=== PATIENT | female | born 1935 | race Caucasian/White ===

== ENCOUNTER 2017-08-30 01:02 | Inpatient (IN) | payer OTHER, MEDICARE ==
[~2017-08-30] VITALS: Ht 167.6 cm; Wt 102.7 kg
[~2017-08-30 01:02] MED LIST: ADVAIR DISKUS 21 DSK INH; ASPIR 8181 MG PO; AUGMENTIN 875875 MG PO; CITALOPRAM HYDR20 MG PO; CLOTRIMAZOLE TR10 MG PO; COUMADIN 1 MG TA1 MG PO; FLUTICASON0.05 MG/A2 NAS; FUROSEMIDE40 MG PO; KLOR-CON M2020 MEQ PO; Levofloxacin PO; MONTELUKAST SOD10 MG PO; MULTIVITAMIN1 TAB PO; QUINAPRIL PO; SENOKOT S 50 MG1 TAB PO; SIMVASTATIN20 MG PO; VESICARE 5MG5 MG PO; ZITHROMAX250 M2 PO
--- NOTE | 2017-08-30 01:14 | ED DYSPNEA/ASTHMA COMPLAINT ---
History of Present Illness General Chief Complaint: Dyspnea (COPD, CHF, Other) Stated Complaint: SOB Source: patient, EMS Exam Limitations: no limitations Vital Signs & Intake/Output Vital Signs & Intake/Output Vital Signs Date Time Temp Pulse Resp B/P B/P Pulse O2 O2 Flow FiO2 Mean Ox Delivery Rate 08/30 0135 94 08/30 0123 94 Room Air 08/30 0119 99.0 80 18 165/84 94 Room Air Allergies Coded Allergies: MDX - Heparin (Mild, RASH 03/08/13) MDX - Cefaclor (UNKNOWN 07/19/13) MDX - Clindamycin (UNKNOWN 07/19/13) MDX - Erythromycin (UNKNOWN 07/19/13) MDX - Penicillin V (UNKNOWN 07/19/13) Reconcile Medications Aspirin (Ecotrin) 81 MG TABLET.DR 1 TAB PO DAILY HEART HEALTH (Reported) Azithromycin (Zithromax) 250 MG TABLET 1 DP PO AD bronchitis 2 the first day followed by 1 for days 2-5 Citalopram Hydrobromide (Citalopram HBr) 20 MG TABLET 1 TAB PO DAILY DEPRESSION (Reported) Clotrimazole 10 MG STONE 1 LITA PO DAILY PRN THRUSH (Reported) Reason to Stop at ADM: NOT NEEDED Fluticasone Propionate 50 MCG/ACTUATION SPRAY.SUSP 2 SPRAY ULISES QAM ALLERGIES (Reported) FLUTICASONE/SALMETEROL (Advair 250-50 Diskus) 250 MCG-50 MCG/DOSE BLST.W.DEV 1 PUFF INH BID ASTHMA (Reported) Furosemide 40 MG TABLET 1 TAB PO BID DIURETIC (Reported) Reason to Stop at ADM: HYPOTENSION [Levofloxacin] 500 MG TAB 1 TAB PO DAILY Montelukast Sodium 10 MG TABLET 1 TAB PO DAILY ASTHMA (Reported) Multivitamin (Multiple Vitamins) 1 EACH TABLET 1 TAB PO DAILY SUPPLEMENT ( Reported) Potassium Chloride (Klor-Con M20) [address] 1 TAB PO TID SUPPLEMENT ( Reported) Quinapril HCl (Accupril) 10 MG TABLET 1 TAB PO DAILY BP (Reported) Reason to Stop at ADM: HYPOTENSION SENNOSIDES/DOCUSATE SODIUM (Senokot-S Tablet) 50 MG/8.6 MG TAB 1 TAB PO DAILY PRN CONSTIPATION (Reported) Simvastatin (Zocor) 20 MG TAB 1 TAB PO QPM CHOLESTEROL (Reported) Solifenacin Succinate (Vesicare) 5 MG TABLET 1 TAB PO DAILY BLADDER (Reported ) Triage Nurses Notes Reviewed? yes Onset: Gradual Duration: day(s):, waxing and waning Timing: recent history Severity: moderate Activities at Onset: none Prior Episodes/Possible Cause: occasional episodes Associated Symptoms: cough, wheezing HPI: 82 yo woman h/o COPD, HTN, hypercholesterolemia, OA, paroxysmal afib, presents with 1-2 weeks of cough, wheezing, phlegm, getting worse over the past 1-2 days, and became short of breath at rest this evening. She reports being breathless with difficulty speaking in complete sentences this evening. She notes no fever, chills, chest pain, orthopnea, worsening lower extremity swelling. She is otherwise well. Per the medics, 02 sat 88% in the field on room air, corrects to 96% on supplemental 02. Past History Travel History Traveled to [place] past 21 day No Medical History Any Pertinent Medical History? see below for history Cardiovascular: AFIB, hypertension, ELEVATED CHOLESTEROL PALPITATIONS ATRIAL FIB Respiratory: asthma Musculoskeletal: ARTHRITIS History of MRSA: No History of VRE: No History of CDIFF: No Surgical History Surgical History: non-contributory Psychosocial History Who do you live with Daughter Services at Home None What is your primary language Sierra Leonean Family History Family History, If Any: MOTHER FH: heart disease FATHER FH: COPD (chronic obstructive pulmonary disease) FH: prostate cancer Hx Contributory? No Review of Systems Review of Systems Constitutional: Reports: no symptoms. EENTM: Reports: no symptoms. Respiratory: Reports: no symptoms. Cardiovascular: Reports: no symptoms. GI: Reports: no symptoms. Genitourinary: Reports: no symptoms. Musculoskeletal: Reports: no symptoms. Skin: Reports: no symptoms. Neurological/Psychological: Reports: no symptoms. Hematologic/Endocrine: Reports: no symptoms. Immunologic/Allergic: Reports: no symptoms. All Other Systems: Reviewed and Negative Physical Exam Physical Exam General Appearance: well developed/nourished, mild distress Head: atraumatic, normal appearance Eyes: Bilateral: normal appearance. Ears, Nose, Throat: normal pharynx, normal ENT inspection Neck: normal inspection, supple, full range of motion Respiratory: rhonchi, wheezing Cardiovascular: regular rate/rhythm Gastrointestinal: normal bowel sounds, soft, non-tender Extremities: normal inspection, normal capillary refill, normal range of motion, no edema Neurologic/Psych: no motor/sensory deficits, awake, alert, oriented x 3 Skin: intact, normal color, warm/dry Core Measures ACS in differential dx? No CVA/TIA Diagnosis No Sepsis Present: No Sepsis Focused Exam Completed? No Progress Differential Diagnosis: asthma, bronchitis, CHF, COPD (on) Plan of Care: Orders Procedure Date/time Status Add-on Test (ER Only) 08/30 032 Active Add-on Test (ER Only) 08/30 031 Active EKG 08/30 020 Active PARTIAL THROMBOPLASTIN TIME 08/30 014 Complete PROTHROMBIN TIME 08/30 014 Complete TROPONIN LEVEL 08/30 113 Complete LIPASE 08/30 113 Complete HEPATIC FUNCTION PANEL 08/30 113 Complete CBC WITHOUT DIFFERENTIAL 08/30 113 Complete BASIC METABOLIC PANEL 08/30 113 Complete AMYLASE 08/30 113 Complete EKG 08/30 010 Active Laboratory Tests 08/30/17 0330: PT 49.1 *H, INR 4.44 *H, APTT 45 H 08/30/17 0258: Anion Gap 10, Estimated GFR > 60, BUN/Creatinine Ratio 27.1 H, Glucose 127 H, Calcium 8.6, Total Bilirubin 1.1, Direct Bilirubin 0.4, AST 21, ALT 32, Alkaline Phosphatase 112, Troponin I < 0.01, Total Protein 7.1, Albumin 3.7, Amylase 68, Lipase 170 08/30/17 0143: CBC w Diff MAN DIFF ORDERED, RBC 4.02 L, MCV 91.4, MCH 29.7, MCHC 32.5 L, RDW 15.2 H, MPV 9.4, Gran % 84.5 H, Lymphocytes % 5.9 L, Monocytes % 8.7, Eosinophils % 0.9, Basophils % 0, Absolute Granulocytes 9.2 H, Absolute Lymphocytes 0.6 L, Absolute Monocytes 0.9 H, Absolute Eosinophils 0.1, Absolute Basophils 0, Platelet Estimate ADEQUATE, Ovalocytes 1+ Diagnostic Imaging: Viewed by Me: Radiology Read. Discussed w/RAD: Radiology Read. CXR Impression: PATIENT: ANA MARIA ALAMO V PRESENT AGE : 82 PATIENT ACCOUNT NO: [id number] : 33 LOCATION: [facility] ORDERING PHYSICIAN: Ethan Beasley MD SERVICE DATE: 08/30/17 EXAM TYPE: RAD - XRY-PORTABLE CHEST XRAY EXAMINATION: XR PORTABLE CHEST CLINICAL INFORMATION: Dyspnea. COMPARISON: Chest x-ray February 10, 2017 TECHNIQUE: Portable frontal view of the chest was obtained. 1:15 AM FINDINGS: The heart size is enlarged. There are calcifications of aortic arch. There is no acute change of the chest. No pulmonary vascular congestion. No infiltrate or pleural effusion. IMPRESSION: No acute abnormality of chest. DICTATED BY: Joey Singh MD DATE/TIME DICTATED:08/30/17148 SAMPLE WRAPPER:BEVERLY DATE/TIME TRANSCRIBED:08/30/17148 CONFIDENTIAL, DO NOT COPY WITHOUT APPROPRIATE AUTHORIZATION. <Electronically signed in Other Vendor System> SIGNED BY: Joey Singh MD 08/30/17 0152 Initial ED EKG: afib, new from prior admission Repeat EKG: unchanged (afib) Departure Departure Disposition: HOME OR SELF CARE Condition: Stable Clinical Impression Primary Impression: COPD exacerbation Referrals: Bud HARDWICK,Cristo Ramos (PCP/Family) Departure Forms: Customer Survey General Discharge Information Admission Note Spoke With: Anali Richter MD Documentation of Exam: Documentation of any treatments & extenuating circumstances including Concerns Regarding Discharge (functional status, medication knowledge or non-compliance, living conditions, etc.) that warrant an admission rather than observation: Pt with copd exacerbation... hypoxic in the field, feeling better after supportive medications.... pt with paroxysmal afib, rate controlled into 80's, stable for gen med. Critical Care Note Critical Care Note Critical Care Time: non-applicable
--- NOTE | 2017-08-30 01:52 | RADIOLOGY REPORT ---
EXAMINATION: XR PORTABLE CHEST CLINICAL INFORMATION: Dyspnea. COMPARISON: Chest x-ray February 10, 2017 TECHNIQUE: Portable frontal view of the chest was obtained. 1:15 AM FINDINGS: The heart size is enlarged. There are calcifications of aortic arch. There is no acute change of the chest. No pulmonary vascular congestion. No infiltrate or pleural effusion. IMPRESSION: No acute abnormality of chest.
[2017-08-30 02:23] LABS: ABSOLUTE BASOPHIL COUNT 0 /CUMM (0.0-0.2); ABSOLUTE EOSINOPHIL COUNT 0.1 /CUMM (0.0-0.7); ABSOLUTE GRANULOCYTE CT 9.2 /CUMM (1.4-6.5); ABSOLUTE LYMPH COUNT 0.6 /CUMM (1.2-3.4); ABSOLUTE MONOCYTE COUNT 0.9 /CUMM (0.10-0.60); BASOPHIL % 0 % (0.0-2.0); EOSINOPHIL % 0.9 % (0-5); GRANULOCYTE % 84.5 % (42.2-75.2); HEMATOCRIT 36.8 % (37-47); MEAN CORPUSCULAR HGB 29.7 PG (27.0-31.0); MEAN CORPUSCULAR HGB CONC 32.5 G/DL (33.0-37.0); MEAN CORPUSCULAR VOLUME 91.4 FL (81.0-99.0); MEAN PLATELET VOLUME 9.4 FL (7.4-10.4); PLATELET COUNT 135 /CUMM (130-400); RBC DISTRIBUTION WIDTH 15.2 % (11.5-14.5); RED BLOOD CELL CT 4.02 /CUMM (4.20-5.40); WHITE BLOOD CELL COUNT 10.9 /CUMM (4.8-10.8)
[2017-08-30 03:52] LABS: PTT 45 SEC (25-37)
[2017-08-30 04:10] LABS: PT 49.1 SEC (9.4-12.5)
--- NOTE | 2017-08-30 04:32 | History & Physical ---
Mable HARDWICK,[facility] 08/30/17 0431: General Information and HPI MD Statement: I have seen and personally examined ANA MARIA ALAMO V and documented this H&P. The patient is a 82 year old F who presented with a patient stated chief complaint of [Shortness of breath]. Source of Information: patient, family Exam Limitations: dementia History of Present Illness: The patient is an 82-year-old woman with a past medical history of COPD, HTN, A.fib on Coumadin, hypercholesterolemia, OA and depression who presented to the ED with complaints of nonproductive cough of one week's duration. Patient has dementia at baseline and is a poor historian. She lives with her daughter Devorah ALAMO and she noticed the patient had developed a nonproductive cough one week prior to presentation associated with postnasal drip. Cough was associated with noisy or rattling breath sounds and a wheeze. The patient had no relief with the use of her bronchodilator inhalers nor with drinking water with honey. The symptoms worsened over the past week until today when she was in bed and she became so short of breath she could not sleep. EMS was called and the patient was brought to the hospital by ambulance and was noted to be satting 88% in the field before improving to 96% on oxygen supplementation. Of note, patient experienced sharp left-sided back pain while being transferred on to the stretcher in the ambulance. She denies sore throat or fever but does admit to having some chills tonight. In addition she has been feeling generally weak for the past 2 days. She denies nausea, vomiting or abdominal pain. She has chronic constipation and has been constipated for the last 2 days. She denies dysuria or hematuria. She denies chest pains, palpitations or leg swelling. Allergies/Medications Home Med list Aspirin (Ecotrin*) 81 MG TABLET.DR 1 TAB PO DAILY hear health (Reported) Citalopram Hydrobromide (Citalopram HBr) 40 MG TABLET 1 TAB PO DAILY mental health (Reported) Fluticasone Propionate 50 MCG/ACTUATION SPRAY.SUSP 2 SPRAY NASB DAILY nasal congestion (Reported) Fluticasone/Salmeterol (Advair 250-50 Diskus) 250 MCG-50 MCG/DOSE BLST.W.DEV 1 PUF INH BID copd (Reported) Furosemide 40 MG TABLET 1 TAB PO DAILY fluid retention (Reported) Memantine HCl (Namenda XR) 28 MG CAP.SPR.24 1 CAP PO DAILY dementia (Reported ) Montelukast Sodium (Singulair) 10 MG TABLET 1 TAB PO DAILY copd (Reported) Multiple Vitamin (Multivitamins) 1 EACH TABLET 1 TAB PO DAILY supplement ( Reported) Potassium Chloride 8 MEQ TABLET.ER 1 TAB PO DAILY supplement (Reported) Quinapril HCl (Accupril) 40 MG TABLET 1 TAB PO DAILY blood pressure (Reported ) Simvastatin (Simvastatin*) 20 MG TABLET 1 TAB PO QPM cholesterol (Reported) Solifenacin Succinate (Vesicare) 5 MG TABLET 1 TAB PO DAILY bladder (Reported ) Past History Travel History Traveled to [place] past 21 day No Medical History Neurological: dementia EENT: macular degeneration Cardiovascular: AFIB, hypertension, ELEVATED CHOLESTEROL PALPITATIONS ATRIAL FIB Respiratory: asthma Musculoskeletal: ARTHRITIS History of MRSA: No History of VRE: No History of CDIFF: No Surgical History Surgical History: non-contributory Past Family/Social History Family History Relations & Conditions if any MOTHER FH: heart disease FATHER FH: COPD (chronic obstructive pulmonary disease) FH: prostate cancer Psychosocial History Services at Home: None Smoking Status: Never Smoked ETOH Use: denies use Functional Ability ADLs Independent: eating, toileting. Needs Assist: dressing, bathing. Ambulation: walker IADLs Needs Assist: shopping, housework, finances, food prep, telephone, transportation, medication admin. Review of Systems Review of Systems Constitutional: Reports: see HPI, chills, weakness. Denies: fever. Exam & Diagnostic Data Last 24 Hrs of Vital Signs/I&O Vital Signs Date Time Temp Pulse Resp B/P B/P Pulse O2 O2 Flow FiO2 Mean Ox Delivery Rate 08/30 0605 100.7 08/30 0605 100.7 08/30 0600 Nasal 2.0L Cannula 08/30 0458 99.5 83 18 143/80 96 Nasal 2.0L Cannula 08/30 0135 94 08/30 0123 94 Room Air 08/30 0119 99.0 80 18 165/84 94 Room Air Intake & Output 08/30 0800 08/30 0000 08/29 1600 Intake Total Output Total Balance Patient 249 lb Weight Weight Bed scale Measurement Method Physical Exam General Appearance Alert, Oriented X3, Cooperative, No Acute Distress Skin No Rashes Skin Temp/Moisture Exam: Warm/Dry Sepsis Skin Exam (color): Normal for Ethnicity HEENT Atraumatic, PERRLA, EOMI, Mucous Membr. moist/pink Neck Supple, No JVD, No thryomegaly Lymphatic Cervical nl Cardiovascular Normal S1, Normal S2, No Murmurs, Gallops, irregularly irregular rate Lungs bilateral scattered wheeze and coarse crepitations in the lung bases Abdomen Soft, No Tenderness, No Hepatospenomegaly, ventral hernia presents with bowel loops palpated. Neurological Normal Speech, Strength at 5/5 X4 Ext, Normal Tone Extremities mild +1 pitting pedal edema bilaterally Last 24 Hrs of Labs/[place]: Laboratory Tests 08/30/17 0330: PT 49.1 *H, INR 4.44 *H, APTT 45 H 08/30/17 0258: Anion Gap 10, Estimated GFR > 60, BUN/Creatinine Ratio 27.1 H, Glucose 127 H, Calcium 8.6, Total Bilirubin 1.1, Direct Bilirubin 0.4, AST 21, ALT 32, Alkaline Phosphatase 112, Troponin I < 0.01, Total Protein 7.1, Albumin 3.7, Amylase 68, Lipase 170 08/30/17 0143: CBC w Diff MAN DIFF ORDERED, RBC 4.02 L, MCV 91.4, MCH 29.7, MCHC 32.5 L, RDW 15.2 H, MPV 9.4, Gran % 84.5 H, Lymphocytes % 5.9 L, Monocytes % 8.7, Eosinophils % 0.9, Basophils % 0, Absolute Granulocytes 9.2 H, Absolute Lymphocytes 0.6 L, Absolute Monocytes 0.9 H, Absolute Eosinophils 0.1, Absolute Basophils 0, Platelet Estimate ADEQUATE, Ovalocytes 1+ Microbiology 08/31 555 URINE ROUT: Urine Culture - ORD 08/31 555 BLOOD: Blood Culture - ORD 08/31 555 BLOOD: Blood Culture - ORD 08/30 0501 NASOPHARYN: Influenza Virus A & B Rapid Smear - COMP Diagnostic Data EKG Results Atrial fibrillation. Heart rate 87 beats per minutes. QTC is 491 ms, nonspecific ST changes CXR Results No pulmonary vascular congestion. No infiltrate or pleural effusion. Impression No acute abnormality of chest. Assessment/Plan Assessment: The patient is an 82-year-old woman with a past medical history of COPD, HTN, A.fib on Coumadin, hypercholesterolemia, OA and depression who presented to the ED with complaints of nonproductive cough, wheezing and postnasal drip of one week's duration along with worsening shortness of breath for the past 2 days. Her symptoms are consistent with acute bronchitis probably triggered by an upper respiratory infection. Her chest has bilateral scattered wheeze and some coarse crepitations but her chest x-ray does not show any lesions suggestive of pneumonia. Influenza could be a possibility and even though he tested negative in the ER, I would like to repeat this test as she has a low-grade fever. She' ll be admitted and pancultured. Will start nebulizer therapy and IV Solu Medrol for bronchitis. Her INR is supratherapeutic and Coumadin will be held until INR drifts down to therapeutic range. Problem list 1. Acute bronchitis with hypoxemic respiratory failure and COPD exacerbation * Admit to general medicine * Continue oxygen by nasal cannula to keep SPO2 greater than 92% * Patient received IV Solu-Medrol 125 mg in the ER early this morning * We'll continue IV Solu Medrol 40 every 12 hours from tonight * Repeat flu swab test please * Blood culture 2, urine culture, sputum culture * Patient is allergic to clindamycin and erythromycin but has received azithromycin in the past. However on account of her prolonged QTC of 491 ms will hold THIS medication * Continue by mouth doxycycline 100 mg twice a day 5 days * By mouth Mucinex 600 mg twice a day * Monitor vital signs for fever * Continue medications for COPD Singulair, Symbicort 2. Supratherapeutic INR * Hold Coumadin for now until INR drifts to therapeutic range 3. Atrial fibrillation on Coumadin * Patient is not on any rate control medications at this time * Continue to monitor heart rate 4. Chronic constipation * Aggressive bowel regimen with by mouth MiraLAX, senna S twice a day * If patient develops abdominal distention or pain consider CT abdomen 5. Dementia * Continue Namenda DVT prophylaxis: Coumadinheld for supratherapeutic INR CODE STATUS: Patient is full code As Ranked By This Provider Problem List: 1. SOB (shortness of breath) 2. COPD (chronic obstructive pulmonary disease) 3. HTN (hypertension) Core Measures/Misc (02/23) Acute Coronary Syndrome ACS Diagnosis: No Congestive Heart Failure Congestive Heart Failure Diagnosis No Cerebrovascular Accident CVA/TIA Diagnosis: No VTE (View Protocol) VTE Risk Factors Acute Medical Illness No Mechanical VTE Prophylaxis d/t N/A MechProphylax Ordered No VTE Pharm Prophylaxis d/t NA PharmProphylax ordered Sepsis (View protocol) Sepsis Present: No Parish HARDWICK,Jennyfer 08/30/17 1243: General Information and HPI Allergies/Medications Allergies: Coded Allergies: Penicillins (UNKNOWN 08/30/17) cefaclor (UNKNOWN 08/30/17) clindamycin (UNKNOWN 08/30/17) erythromycin base (UNKNOWN 08/30/17) heparin (RASH 08/30/17) Attending MD Review Statement Attending Statement Attending MD Statement: examined this patient (in), discuss w/resident/PA/TUTOR COORDINATOR, agreed w/resident/PA/TUTOR COORDINATOR, reviewed EMR data (avail), discussed with nursing, discussed with case mgmt, reviewed images, amended to note Attending Assessment/Plan: 82 y/o F with pmh sig for COPD, HTN, A.fib on Coumadin, hypercholesterolemia, OA and depression presented with cough, wheezing, some shortness of breath. Symptoms started about a week ago. Patient herself is not a good historian therefore history of pain from a family. Apparently patient has been having this nonproductive cough from a week and 20 was getting out of breath and had some wheezing and rattling breath sounds. Last night she could not sleep and felt short of breath despite getting her breathing treatments therefore EMS was called and patient was brought into the emergency room. Patient had a low-grade temp but chest x-ray negative for any infiltrate. There was slight leukocytosis. Vital Signs Date Time Temp Pulse Resp B/P B/P Pulse O2 O2 Flow FiO2 Mean Ox Delivery Rate 08/30 1120 Nasal 2.0L Cannula 08/30 1000 76 112/60 08/30 0800 Nasal 2.0L Cannula 08/30 0715 98.4 08/30 0620 100.8 79 18 128/70 98 Nasal Cannula 08/30 0605 100.7 08/30 0605 100.7 08/30 0600 Nasal 2.0L Cannula 08/30 0458 99.5 83 18 143/80 96 Nasal 2.0L Cannula 08/30 0135 94 08/30 0123 94 Room Air 08/30 0119 99.0 80 18 165/84 94 Room Air on exam: awake, NAD. cv; s1,s2, RRR resp; mild scattered wheeze. abd; soft, nt, bs+ ext; no edema, Laboratory Tests 08/30 08/30 08/30 1723 0333 0255 Chemistry Sodium (137 - 145 mmol/L) 141 Potassium (3.5 - 5.1 mmol/L) 3.7 Chloride (98 - 107 mmol/L) 99 Carbon Dioxide (22 - 30 mmol/L) 31 H Anion Gap (5 - 16) 10 BUN (7 - 17 mg/dL) 19 H Creatinine (0.5 - 1.0 mg/dL) 0.7 Estimated GFR (>60 ml/min) > 60 BUN/Creatinine Ratio (7 - 25 %) 27.1 H Glucose (65 - 99 mg/dL) 127 H Calcium (8.4 - 10.2 mg/dL) 8.6 Total Bilirubin (0.2 - 1.3 mg/dL) 1.1 Direct Bilirubin (< 0.4 mg/dL) 0.4 AST (14 - 36 U/L) 21 ALT (9 - 52 U/L) 32 Alkaline Phosphatase (<127 U/L) 112 Troponin I (< 0.11 ng/ml) < 0.01 Total Protein (6.3 - 8.2 g/dL) 7.1 Albumin (3.5 - 5.0 g/dL) 3.7 Amylase (30 - 110 U/L) 68 Lipase (23 - 300 U/L) 170 Coagulation PT (9.4 - 12.5 SEC) 49.1 *H INR (0.90 - 1.19) 4.44 *H APTT (25 - 37 SEC) 45 H Serology Virus Culture Pending 08/30 142 Hematology CBC w Diff MAN DIFF ORDERED WBC (4.8 - 10.8 /CUMM) 10.9 H RBC (4.20 - 5.40 /CUMM) 4.02 L Hgb (12.0 - 16.0 G/DL) 12.0 Hct (37 - 47 %) 36.8 L MCV (81.0 - 99.0 FL) 91.4 MCH (27.0 - 31.0 PG) 29.7 MCHC (33.0 - 37.0 G/DL) 32.5 L RDW (11.5 - 14.5 %) 15.2 H Plt Count (130 - 400 /CUMM) 135 MPV (7.4 - 10.4 FL) 9.4 Gran % (42.2 - 75.2 %) 84.5 H Lymphocytes % (20.5 - 51.1 %) 5.9 L Monocytes % (1.7 - 9.3 %) 8.7 Eosinophils % (0 - 5 %) 0.9 Basophils % (0.0 - 2.0 %) 0 Absolute Granulocytes (1.4 - 6.5 /CUMM) 9.2 H Absolute Lymphocytes (1.2 - 3.4 /CUMM) 0.6 L Absolute Monocytes (0.10 - 0.60 /CUMM) 0.9 H Absolute Eosinophils (0.0 - 0.7 /CUMM) 0.1 Absolute Basophils (0.0 - 0.2 /CUMM) 0 Platelet Estimate (ADEQUATE) ADEQUATE Ovalocytes 1+ CXR: no infiltrate. A/P: 82 y/o F with pmh sig for COPD, HTN, A.fib on Coumadin, hypercholesterolemia, OA and depression admitted with acute bronchitis, acute COPD exacerbation. Patient will be admitted to medicine floor. She received doxycycline in the emergency room which we will continue. We'll obtain sputum culture. IV steroids and TRC nebs. She's also couple of ethics with high INR. Coumadin will be held today INR will be checked in the morning. Continue this at home medications. DVT px: INR super therapeutic. She is a full code.
[2017-08-30] MEDS ORDERED: CITALOPRAM HBR40 MG PO (05:29)
[2017-08-30] MEDS ORDERED: ASPIRIN EC81 M1 PO (05:30)
[2017-08-30] MEDS ORDERED: ACCUPRIL40 M1 PO (05:32)
[2017-08-30] MEDS ORDERED: ADVAIR 250-501 EACH INH (05:33)
[2017-08-30] MEDS ORDERED: FLUTICASONE PRO16 GM NASB (05:34)
[2017-08-30] MEDS ORDERED: POTASSIUM CHLOR8 ME2 PO (05:35)
[2017-08-30] MEDS ORDERED: MULTIVITAMINS1 EAC9 PO (05:36)
[2017-08-30] MEDS ORDERED: FUROSEMIDE40 M1 PO (05:37)
[2017-08-30] MEDS ORDERED: SINGULAIR10 M1 PO (05:38)
[2017-08-30] MEDS ORDERED: SIMVASTATIN20 M2 PO (05:39)
[2017-08-30] MEDS ORDERED: VESICARE5 M1 PO (05:39)
[2017-08-30] MEDS ORDERED: NAMENDA XR28 M1 PO (05:40)
[2017-08-30 06:20] VITALS: BP 128/70
[2017-08-30 14:55] VITALS: BP 110/70
[2017-08-30 22:34] VITALS: BP 128/60
[2017-08-31 06:20] VITALS: BP 140/70
--- NOTE | 2017-08-31 08:04 | PN- Housestaff ---
Trice Salinas 08/31/17 0804: Subjective Follow-up For: Acute bronchitis with hypoxemic respiratory failure and COPD exacerbation Supratherapeutic INR Atrial fibrillation on Coumadin Subjective: Patient reports chest tightness. Denies SOB, CP, nausea, vomiting, cough Review of Systems Constitutional: Reports: see HPI. Objective Last 24 Hrs of Vital Signs/I&O Vital Signs Date Time Temp Pulse Resp B/P B/P Pulse O2 O2 Flow FiO2 Mean Ox Delivery Rate 08/31 0620 98.1 75 18 140/70 94 Room Air 08/31 0000 98 Nasal 2.0L Cannula 08/30 2234 98.5 66 20 128/60 98 Nasal 2.0L Cannula 08/30 1850 96 Nasal 2.0L Cannula 08/30 1600 Nasal 2.0L Cannula 08/30 1455 98.7 67 18 110/70 96 08/30 1120 Nasal 2.0L Cannula 08/30 1000 76 112/60 Intake & Output 08/31 1600 08/31 0800 08/31 0000 Intake Total 360 480 Output Total Balance 360 480 Intake, Oral 360 480 Patient 229 lb Weight Weight Bed scale Measurement Method Physical Exam General Appearance: Alert, Oriented X3, Cooperative, on 2LNC Cardiovascular: Regular Rate, Normal S1, Normal S2 Lungs: Mild diffused wheezing Abdomen: Normal Bowel Sounds, Soft, No Tenderness Current Medications: Current Medications Sig/Jono Start time Last Medication Dose Route Stop Time Status Admin Acetaminophen 650 MG Q6P PRN 08/30 0600 AC PO Albuterol Sulfate 3 ML BID 08/30 1125 AC 08/30 INH 1850 Aspirin Buffered 81 MG DAILY 08/30 1000 AC 08/30 PO 0956 Atorvastatin Calcium 10 MG 1700 08/30 1700 AC 08/30 PO 1612 Budesonide/ 2 PUF BID 08/30 1000 AC 08/30 Formoterol Fumarate INH 2126 Citalopram 40 MG DAILY 08/30 1000 AC 08/30 Hydrobromide PO 0955 Doxycycline Hyclate 100 MG BID 08/30 2200 AC 08/30 PO 2125 Fluticasone 2 SPRAY DAILY 08/30 1000 AC 08/30 Propionate ULISES 1020 Furosemide 40 MG DAILY 08/30 1000 AC 08/30 PO 0958 Guaifenesin 600 MG Q12 08/30 1000 AC 08/30 PO 2125 Lisinopril 10 MG DAILY 08/30 1000 AC 08/30 PO 1000 Memantine 10 MG BID 08/30 1000 AC 08/30 PO 2125 Methylprednisolone 40 MG Q12 08/300 AC 08/30 IV 2125 Montelukast Sodium 10 MG DAILY@0 08/30 2200 AC 08/30 PO 2126 Montelukast Sodium 10 MG DAILY 08/30 1000 DC PO Multivitamins 1 TAB DAILY 08/30 1000 AC 08/30 Therapeutic PO 1002 Polyethylene Glycol 17 GM DAILY 08/30 1000 AC 08/30 PO 1008 Potassium Chloride 10 MEQ DAILY 08/30 1000 AC 08/30 PO 0957 Senna/Docusate Sodium 1 TAB BID 08/30 1000 AC 08/30 PO 2125 Last 24 Hrs of Lab/[place] Results Last 24 Hrs of Labs/Mics: Laboratory Tests 08/31/17 0730: Sodium Pending, Potassium Pending, Chloride Pending, Carbon Dioxide Pending, Anion Gap Pending, BUN Pending, Creatinine Pending, BUN/Creatinine Ratio Pending , PT Pending, INR Pending, CBC w Diff Pending, WBC Pending, RBC Pending, Hgb Pending, Hct Pending, MCV Pending, MCH Pending, MCHC Pending, RDW Pending, Plt Count Pending, MPV Pending Microbiology 08/30 1145 BLOOD: Blood Culture - RECD 08/30 1010 BLOOD: Blood Culture - RECD Assessment/Plan Assessment: Ms. Gallegos is a 82-year-old woman with a past medical history of COPD, HTN, A.fib on Coumadin, hypercholesterolemia, OA and depression who presented to the ED with complaints of nonproductive cough, wheezing and postnasal drip Priblem list: Acute bronchitis with hypoxemic respiratory failure and COPD exacerbation Supratherapeutic INR Atrial fibrillation on Coumadin, not on rate control Plan: TRC/nebs PRN Dose Coumadin per INR, will hold today Continue IV methyprenisolone BID, Doxycycline BID DVT prophylaxis: Coumadinheld for supratherapeutic INR CODE STATUS: full code Problem List: 1. Supratherapeutic INR 2. COPD exacerbation Pain Ratin Pain Location: NA Pain Goal: Remain pain free Pain Plan: NA Tomorrow's Labs & Rationales: CBC, BEP Parish HARDWICK,Jennyfer 08/31/17 1229: Attending MD Review Statement Attending Statement Attending MD Statement: examined this patient, discuss w/resident/PA/FIRST ASSIST, agreed w/resident/PA/FIRST ASSIST, discussed with family, reviewed EMR data (avail), discussed with nursing, reviewed images, amended to note Attending Assessment/Plan: Patient seen and examined, feels slightly better with her breathing. Did mention some chest discomfort with deep breath. Vital Signs Date Time Temp Pulse Resp B/P B/P Pulse O2 O2 Flow FiO2 Mean Ox Delivery Rate 08/31 1055 97 Nasal 2.0L Cannula 08/31 0925 77 110/68 08/31 0620 98.1 75 18 140/70 94 Room Air 08/31 0000 98 Nasal 2.0L Cannula 08/30 2234 98.5 66 20 128/60 98 Nasal 2.0L Cannula 08/30 1850 96 Nasal 2.0L Cannula 08/30 1600 Nasal 2.0L Cannula 08/30 1455 98.7 67 18 110/70 96 on exam: awake, NAD. cv; s1,s2, RRR resp; clear abd; soft, nt, bs+ ext; no edema, Laboratory Tests 08/31 0730 Chemistry Sodium (137 - 145 mmol/L) 140 Potassium (3.5 - 5.1 mmol/L) 3.9 Chloride (98 - 107 mmol/L) 101 Carbon Dioxide (22 - 30 mmol/L) 30 Anion Gap (5 - 16) 9 BUN (7 - 17 mg/dL) 21 H Creatinine (0.5 - 1.0 mg/dL) 0.8 Estimated GFR (>60 ml/min) > 60 BUN/Creatinine Ratio (7 - 25 %) 26.3 H Coagulation PT (9.4 - 12.5 SEC) 47.6 *H INR (0.90 - 1.19) 4.30 *H Hematology CBC w Diff NO MAN DIFF REQ WBC (4.8 - 10.8 /CUMM) 12.6 H RBC (4.20 - 5.40 /CUMM) 3.59 L Hgb (12.0 - 16.0 G/DL) 10.8 L Hct (37 - 47 %) 33.2 L MCV (81.0 - 99.0 FL) 92.6 MCH (27.0 - 31.0 PG) 30.0 MCHC (33.0 - 37.0 G/DL) 32.4 L RDW (11.5 - 14.5 %) 15.1 H Plt Count (/CUMM) MPV (7.4 - 10.4 FL) 9.1 Gran % (42.2 - 75.2 %) 92.5 H Lymphocytes % (20.5 - 51.1 %) 3.4 L Monocytes % (1.7 - 9.3 %) 4.1 Eosinophils % (0 - 5 %) 0 Basophils % (0.0 - 2.0 %) 0 Absolute Granulocytes (1.4 - 6.5 /CUMM) 11.6 H Absolute Lymphocytes (1.2 - 3.4 /CUMM) 0.4 L Absolute Monocytes (0.10 - 0.60 /CUMM) 0.5 Absolute Eosinophils (0.0 - 0.7 /CUMM) 0 Absolute Basophils (0.0 - 0.2 /CUMM) 0 A/P: 82 y/o F with pmh sig for COPD, HTN, A.fib on Coumadin, hypercholesterolemia, OA and depression admitted with acute bronchitis, acute COPD exacerbation. Patient has supratherapeutic INR. Continue IV steroids, agree with decreasing the frequency to every 12. Continue doxycycline. Follow-up on the cultures. Chest discomfort is likely secondary to bronchitis. If patient has constant chest pain or chest pressure, she will need an EKG and troponins. Continue the rest of the medications and TRC nebs. DVT px, INR subtherapeutic. Please hold Coumadin and check INR in the morning. Discussed with patient's daughter at bedside.
[2017-08-31 08:13] LABS: ABSOLUTE BASOPHIL COUNT 0 /CUMM (0.0-0.2); ABSOLUTE EOSINOPHIL COUNT 0 /CUMM (0.0-0.7); ABSOLUTE GRANULOCYTE CT 11.6 /CUMM (1.4-6.5); ABSOLUTE LYMPH COUNT 0.4 /CUMM (1.2-3.4); ABSOLUTE MONOCYTE COUNT 0.5 /CUMM (0.10-0.60); BASOPHIL % 0 % (0.0-2.0); EOSINOPHIL % 0 % (0-5); HEMATOCRIT 33.2 % (37-47); MEAN CORPUSCULAR HGB CONC 32.4 G/DL (33.0-37.0); MEAN CORPUSCULAR VOLUME 92.6 FL (81.0-99.0); MEAN PLATELET VOLUME 9.1 FL (7.4-10.4); RBC DISTRIBUTION WIDTH 15.1 % (11.5-14.5); RED BLOOD CELL CT 3.59 /CUMM (4.20-5.40); WHITE BLOOD CELL COUNT 12.6 /CUMM (4.8-10.8)
[2017-08-31 09:15] LABS: GRANULOCYTE % 92.5 % (42.2-75.2)
[2017-08-31 09:20] LABS: PT 47.6 SEC (9.4-12.5)
[2017-08-31 15:08] VITALS: BP 116/56
[2017-08-31 22:11] VITALS: BP 128/60
[2017-09-01 06:20] VITALS: BP 126/70
--- NOTE | 2017-09-01 07:24 | PN- Housestaff ---
See Addendum Subjective Follow-up For: Acute bronchitis with hypoxemic respiratory failure and COPD exacerbation Supratherapeutic INR Atrial fibrillation on Coumadin Subjective: No complaints or acute events overnight Review of Systems Constitutional: Reports: see HPI. Objective Last 24 Hrs of Vital Signs/I&O Vital Signs Date Time Temp Pulse Resp B/P B/P Pulse O2 O2 Flow FiO2 Mean Ox Delivery Rate 09/01 06 98.4 75 20 126/70 96 Room Air 09/01 0000 Nasal 2.0L Cannula 08/31 2211 98.1 71 20 128/60 95 08/31 1850 98 Room Air 08/31 1600 Room Air Room Air 08/31 1508 98.2 69 20 116/56 95 08/31 1055 97 Nasal 2.0L Cannula 08/31 0925 77 110/68 Intake & Output 09/01 1600 09/01 0800 09/01 0000 Intake Total 480 Output Total Balance 480 Intake, Oral 480 Patient 230 lb Weight Weight Bed scale Measurement Method Physical Exam General Appearance: Alert, Oriented X3, Cooperative, No Acute Distress Cardiovascular: Regular Rate, Normal S1, Normal S2 Lungs: Mild wheezing Abdomen: Normal Bowel Sounds, Soft, No Tenderness Current Medications: Current Medications Sig/Jono Start time Last Medication Dose Route Stop Time Status Admin Acetaminophen 650 MG Q6P PRN 08/30 0600 AC PO Albuterol Sulfate 3 ML BID 08/30 1125 AC 08/31 INH 1850 Aspirin Buffered 81 MG DAILY 08/30 1000 AC 08/31 PO 0921 Atorvastatin Calcium 10 MG 1700 08/30 1700 AC 08/31 PO 1630 Budesonide/ 2 PUF BID 08/30 1000 AC 08/31 Formoterol Fumarate INH 2138 Citalopram 40 MG DAILY 08/30 1000 AC 08/31 Hydrobromide PO 0920 Doxycycline Hyclate 100 MG BID 08/30 2200 AC 08/31 PO 2138 Fluticasone 2 SPRAY DAILY 08/30 1000 AC 08/31 Propionate ULISES 0928 Furosemide 40 MG DAILY 08/30 1000 AC 08/31 PO 0922 Guaifenesin 600 MG Q12 08/30 1000 AC 08/31 PO 2138 Lisinopril 10 MG DAILY 08/30 1000 AC 08/31 PO 0925 Memantine 10 MG BID 08/30 1000 AC 08/31 PO 2138 Methylprednisolone 40 MG Q12 08/30 2200 AC 08/31 IV 2138 Montelukast Sodium 10 MG DAILY@2200 08/30 2200 AC 08/31 PO 2138 Multivitamins 1 TAB DAILY 08/30 1000 AC 08/31 Therapeutic PO 0926 Patient Own 1 UNIT DAILY 08/31 1415 DC Medication PO Polyethylene Glycol 17 GM DAILY 08/30 1000 AC 08/31 PO 0932 Potassium Chloride 10 MEQ DAILY 08/30 1000 AC 08/31 PO 0921 Senna/Docusate Sodium 1 TAB BID 08/30 1000 AC 08/31 PO 2138 Last 24 Hrs of Lab/[place] Results Last 24 Hrs of Labs/Mics: Laboratory Tests 09/01/17 0819: Sodium Pending, Potassium Pending, Chloride Pending, Carbon Dioxide Pending, Anion Gap Pending, BUN Pending, Creatinine Pending, BUN/Creatinine Ratio Pending , PT Pending, INR Pending, CBC w Diff Pending, WBC Pending, RBC Pending, Hgb Pending, Hct Pending, MCV Pending, MCH Pending, MCHC Pending, RDW Pending, Plt Count Pending, MPV Pending Assessment/Plan Assessment: Ms. Gallegos is a 82-year-old woman with a past medical history of COPD, HTN, A.fib on Coumadin, hypercholesterolemia, OA and depression who presented to the ED with complaints of nonproductive cough, wheezing and postnasal drip Priblem list: Acute bronchitis with hypoxemic respiratory failure and COPD exacerbation Supratherapeutic INR Atrial fibrillation on Coumadin, not on rate control Plan: TRC/nebs PRN Dose Coumadin per INR, will hold today Change IV methyprenisolone BID to PO taper Continue Doxycycline BID DVT prophylaxis: Coumadinheld for supratherapeutic INR CODE STATUS: full code Problem List: 1. COPD exacerbation 2. Supratherapeutic INR Pain Ratin Pain Location: NA Pain Goal: Remain pain free Pain Plan: NA Tomorrow's Labs & Rationales: CBC for white ct
[2017-09-01 09:32] LABS: PT 43.4 SEC (9.4-12.5)
[2017-09-01 09:36] LABS: ABSOLUTE BASOPHIL COUNT 0 /CUMM (0.0-0.2); ABSOLUTE EOSINOPHIL COUNT 0 /CUMM (0.0-0.7); ABSOLUTE GRANULOCYTE CT 10.7 /CUMM (1.4-6.5); ABSOLUTE LYMPH COUNT 0.5 /CUMM (1.2-3.4); ABSOLUTE MONOCYTE COUNT 0.4 /CUMM (0.10-0.60); BASOPHIL % 0 % (0.0-2.0); EOSINOPHIL % 0 % (0-5); HEMATOCRIT 34.3 % (37-47); MEAN CORPUSCULAR HGB 30.1 PG (27.0-31.0); MEAN CORPUSCULAR HGB CONC 32.8 G/DL (33.0-37.0); MEAN CORPUSCULAR VOLUME 91.7 FL (81.0-99.0); RBC DISTRIBUTION WIDTH 15.4 % (11.5-14.5); RED BLOOD CELL CT 3.74 /CUMM (4.20-5.40)
[2017-09-01 10:23] LABS: WHITE BLOOD CELL COUNT 11.5 /CUMM (4.8-10.8)
[2017-09-01 10:24] LABS: GRANULOCYTE % 92.9 % (42.2-75.2)
[2017-09-01] MEDS ORDERED: PREDNISONE10 M2 PO (10:31)
[2017-09-01] MEDS ORDERED: DOXYCYCLINE HY100 M2 PO (10:31)
--- NOTE | 2017-09-01 10:33 | Patient Discharge Instructions ---
Discharge Instructions General Discharge Information You were seen/treated for: COPD exacerbation Supratherapeutic INR Acute Bronchitis You had these procedures: none Special Instructions: Follow up with your PCP within 1 week upon discharge Recheck your INR 09/04/17 and check with your PCP or opto mechanical engineer before resuming Coumadin Follow up with your C.O.D. Biller upon discharge Diet Continue normal diet: Yes Activity Full Activity/No Limits: Yes Acute Coronary Syndrome Inclusion Criteria At DC or during hospital stay patient has or had the following: ACS DIAGNOSIS No Discharge Core Measures Meds if any: Prescribed or Continued at Discharge Meds if any: NOT Prescribed or Continued at Discharge Congestive Heart Failure Inclusion Criteria At DC or during hospital stay patient has or had the following: CHF DIAGNOSIS No Discharge Core Measures Meds if any: Prescribed or Continued at Discharge Meds if any: NOT Prescribed or Continued at Discharge Cerebrovascular accident Inclusion Criteria At DC or during hospital stay patient has or had the following: CVA/TIA Diagnosis No Discharge Core Measures Meds if any: Prescribed or Continued at Discharge Meds if any: NOT Prescribed or Continued at Discharge Venous thromboembolism Inclusion Criteria VTE Diagnosis No VTE Type NONE VTE Confirmed by (Test) NONE Discharge Core Measures - Per Current guidelines, there needs to be overlap - treatment for the first 5 days of Warfarin therapy. - If discharged on Warfarin prior to 5 days of - overlap therapy, the patient will need to be - assessed for post discharge needs including - *Post discharge parental anticoagulation - *Warfarin and/or parental anticoagulation education - *Follow up date to check INR post discharge At least 5 days overlap therapy as Inpatient No Meds if any: Prescribed or Continued at Discharge Note: Overlap Therapy is Warfarin and Anticoagulant Meds if any: NOT Prescribed or Continued at Discharge
[2017-09-01 14:50] VITALS: BP 126/60
--- NOTE | 2017-09-01 15:56 | Discharge Summary ---
Visit Information Visit Dates Admission Date: 08/30/17 Discharge Date: 09/02/17 Hospital Course Course Attending Physician: Juve Corrales MD Primary Care Physician: Cristo Farrell MD Hospital Course: Ms. Gallegos is a 82-year-old woman with a past medical history of COPD, HTN, A.fib on Coumadin, hypercholesterolemia, OA and depression who presented to the ED with complaints of nonproductive cough, wheezing and postnasal drip. She was admitted to gen medical floor for further evaluation and management. Problem list: Acute bronchitis COPD exacerbation Supratherapeutic INR Atrial fibrillation on Coumadin She was given TRC and nebs as needed. CXR did not show any acute pathology. Her INR on admission was 4.44 and we held her Coumadin. It remained elevated throughtout her stay. She was not on any rate control medication and her vitals remained stable. She was started on IV steroids and transitioned to an oral steroids taper. Due to her QTc prolongation noted on the ECG she was started on Doxycycline. She was instructed upon discharge to check her INR before resuming her Coumadin. Allergies: Coded Allergies: Penicillins (UNKNOWN 08/30/17) cefaclor (UNKNOWN 08/30/17) clindamycin (UNKNOWN 08/30/17) erythromycin base (UNKNOWN 08/30/17) heparin (RASH 08/30/17) Pertinent Lab Results: 08/30/17-0114 XRY-PORTABLE CHEST XRAY FINDINGS: The heart size is enlarged. There are calcifications of aortic arch. There is no acute change of the chest. No pulmonary vascular congestion. No infiltrate or pleural effusion. IMPRESSION: No acute abnormality of chest. Disposition Summary Disposition Principal Diagnosis: Acute bronchitis Additional Diagnosis: COPD exacerbation Supratherapeutic INR Discharge Disposition: home or self care Discharge Instructions General Discharge Information Code Status: Full Code Patient's Diet: Regular Patient's Activity: Full Follow-Up Instructions/Appts: Follow up with your PCP within 1 week upon discharge Recheck your INR 09/04/17 and check with your PCP or clinical rn manager before resuming Coumadin Follow up with your Independent Beauty Consultant upon discharge Medications at Discharge Discharge Medications: Continue taking these medications: Citalopram Hydrobromide (Citalopram HBr) 40 MG TABLET 1 Tablet ORAL DAILY Qty = 30 Comments: Last Taken: 09/02/17 Time: 830 AM Aspirin (Ecotrin*) 81 MG TABLET.DR 1 Tablet ORAL DAILY Comments: Last Taken: 09/02/17 Time: 830 AM Quinapril HCl (Accupril) 40 MG TABLET 1 Tablet ORAL DAILY Comments: NOT GIVEN IN THE HOSPITAL Fluticasone/Salmeterol (Advair 250-50 Diskus) 250 MCG-50 MCG/DOSE BLST.W.DEV 1 Puff Inhale through mouth TWICE DAILY Qty = 60 Comments: NOT GIVEN IN THE HOSPITAL Fluticasone Propionate (Fluticasone Propionate) 50 MCG/ACTUATION SPRAY.SUSP 2 [place] Both sides of nose DAILY Qty = 48 Comments: Last Taken: 09/02/17 Time: 830 AM Potassium Chloride (Potassium Chloride) 8 MEQ TABLET.ER 1 Tablet ORAL DAILY Qty = 30 Comments: Last Taken: 09/02/17 Time: 830 AM Multiple Vitamin (Multivitamins) 1 EACH TABLET 1 Tablet ORAL DAILY Comments: Last Taken: 09/02/17 Time: 830 AM Furosemide (Furosemide) 40 MG TABLET 1 Tablet ORAL DAILY Qty = 30 Comments: Last Taken: 09/02/17 Time: 830 AM Montelukast Sodium (Singulair) 10 MG TABLET 1 Tablet ORAL DAILY Comments: Last Taken: 09/01/17 Time: 915 PM Simvastatin (Simvastatin*) 20 MG TABLET 1 Tablet ORAL Every night Qty = 30 Comments: ATORVASTATIN GIVEN IN THE HOSPITAL ON 09/01/17 @ 430 PM Solifenacin Succinate (Vesicare) 5 MG TABLET 1 Tablet ORAL DAILY Qty = 30 Comments: NOT GIVEN IN THE HOSPITAL Memantine HCl (Namenda XR) 28 MG CAP.SPR.24 1 Capsule ORAL DAILY Qty = 30 Comments: Last Taken: 09/02/17 Time: 830 AM Start taking the following new medications: Doxycycline Hyclate (Doxycycline Hyclate) 100 MG CAPSULE 1 Capsule ORAL TWICE DAILY Qty = 6 No Refills Comments: Last Taken: 09/02/17 Time: 830 AM Prednisone (Prednisone) 10 MG TABLET 10 Milligram ORAL SEE INSTRUCTIONS Qty = 1 No Refills Instructions: Take 50 mg 09/02, 09/03. 40 mg 09/04, 09/05. 30 mg 09/06, 4/. 20 mg 09/08, 4/. 10 mg 09/10 Comments: Last Taken: 09/02/17 Time: 830 AM Copies To: Bud HARDWICK,Cristo Ramos
[2017-09-01 22:50] VITALS: BP 152/70
[2017-09-02 07:00] VITALS: BP 140/74
--- NOTE | 2017-09-02 07:14 | PN- Housestaff ---
Trice Salinas 09/02/17 0714: Subjective Follow-up For: Acute bronchitis with hypoxemic respiratory failure and COPD exacerbation Supratherapeutic INR Atrial fibrillation on Coumadin Subjective: No complaints or acute events overnight Review of Systems Constitutional: Reports: see HPI. Objective Last 24 Hrs of Vital Signs/I&O Vital Signs Date Time Temp Pulse Resp B/P B/P Pulse O2 O2 Flow FiO2 Mean Ox Delivery Rate 09/02 0700 97.9 65 20 140/74 97 Room Air 09/02 0000 Room Air 09/01 2250 98.8 67 20 152/70 98 Room Air 09/01 1820 97 Room Air 09/01 1600 Room Air 09/01 1450 98.7 88 20 126/60 96 09/01 1110 96 Room Air 09/01 1009 98.4 75 20 126/70 Intake & Output 09/02 0800 09/02 0000 09/01 1600 Intake Total 280 240 Output Total 320 Balance 280 -80 Intake, Oral 280 240 Number 1 Bowel Movements Output, Urine 320 Physical Exam General Appearance: Alert, Oriented X3, Cooperative, No Acute Distress Cardiovascular: Regular Rate, Normal S1, Normal S2 Lungs: Clear to Auscultation, Normal Air Movement Abdomen: Normal Bowel Sounds, Soft, No Tenderness Current Medications: Current Medications Sig/Jono Start time Last Medication Dose Route Stop Time Status Admin Acetaminophen 650 MG Q6P PRN 08/30 0600 AC PO Albuterol Sulfate 3 ML BID 08/30 1125 AC 09/01 INH 1820 Aspirin Buffered 81 MG DAILY 08/30 1000 AC 09/01 PO 1009 Atorvastatin Calcium 10 MG 1700 08/30 1700 AC 09/01 PO 1620 Budesonide/ 2 PUF BID 08/30 1000 AC 09/01 Formoterol Fumarate INH 211 Citalopram 40 MG DAILY 08/30 1000 AC 09/01 Hydrobromide PO 1009 Doxycycline Hyclate 100 MG BID 08/30 2200 AC 09/01 PO 2113 Fluticasone 2 SPRAY DAILY 08/30 1000 AC 09/01 Propionate ULISES 1008 Furosemide 40 MG DAILY 08/30 1000 AC 09/01 PO 1009 Guaifenesin 600 MG Q12 08/30 1000 AC 09/01 PO 211 Lisinopril 10 MG DAILY 08/30 1000 AC 09/01 PO 1009 Memantine 10 MG BID 08/30 1000 AC 09/01 PO 2113 Methylprednisolone 40 MG Q12 08/300 DC 09/01 IV 1008 Montelukast Sodium 10 MG DAILY@0 08/300 AC 09/01 PO 2112 Multivitamins 1 TAB DAILY 08/30 1000 AC 09/01 Therapeutic PO 1009 Polyethylene Glycol 17 GM DAILY 08/30 1000 AC 09/01 PO 1008 Potassium Chloride 10 MEQ DAILY 08/30 1000 AC 09/01 PO 100 Prednisone 40 MG DAILY 09/02 1000 AC PO Senna/Docusate Sodium 1 TAB BID 08/30 1000 AC 09/01 PO 2112 Last 24 Hrs of Lab/[place] Results Last 24 Hrs of Labs/Mics: Laboratory Tests 09/01/17 0819: Anion Gap 12, Estimated GFR > 60, BUN/Creatinine Ratio 31.3 H, PT 43.4 *H, INR 3.93 H, CBC w Diff NO MAN DIFF REQ, RBC 3.74 L, MCV 91.7, MCH 30.1, MCHC 32.8 L, RDW 15.4 H, Gran % 92.9 H, Lymphocytes % 4.0 L, Monocytes % 3.1, Eosinophils % 0, Basophils % 0, Absolute Granulocytes 10.7 H, Absolute Lymphocytes 0.5 L, Absolute Monocytes 0.4, Absolute Eosinophils 0, Absolute Basophils 0 Assessment/Plan Assessment: Ms. Gallegos is a 82-year-old woman with a past medical history of COPD, HTN, A.fib on Coumadin, hypercholesterolemia, OA and depression who presented to the ED with complaints of nonproductive cough, wheezing and postnasal drip Priblem list: Acute bronchitis with hypoxemic respiratory failure and COPD exacerbation Supratherapeutic INR Atrial fibrillation on Coumadin, not on rate control Plan: TRC/nebs PRN Dose Coumadin per INR, will hold today Continue steroids PO taper Continue Doxycycline BID DVT prophylaxis: Coumadinheld for supratherapeutic INR CODE STATUS: full code Problem List: 1. Supratherapeutic INR 2. Bronchitis 3. COPD exacerbation Pain Ratin Pain Location: NA Pain Goal: Remain pain free Pain Plan: NA Tomorrow's Labs & Rationales: none Juve Corrales MD 09/02/17 1125: Attending MD Review Statement Attending Statement Attending MD Statement: examined this patient, discuss w/resident/PA/SPRAY APPLICATOR, agreed w/resident/PA/SPRAY APPLICATOR, reviewed EMR data (avail) Attending Assessment/Plan: 82F PMH COPD, HTN, atrial fibrillation on Coumadin, HLD, osteoarthritis admitted with shortness of breath and cough in the setting of COPD exacerbation secondary to acute bronchitis, with course complicated by supratherapeutic INR. Back to baseline. INR at goal. Vitals stable, labs reviewed. 1. COPD Exacerbation 2. Acute bronchitis 3. Supratherapeutic INR Plan - Discharge home - Doxycycline to complete course - Prednisone taper - Continue home medications - Continue Coumadin at home
[2017-09-02 08:33] VITALS: BP 140/74
[2017-09-02 08:37] LABS: ABSOLUTE BASOPHIL COUNT 0 /CUMM (0.0-0.2); ABSOLUTE EOSINOPHIL COUNT 0 /CUMM (0.0-0.7); ABSOLUTE GRANULOCYTE CT 8.5 /CUMM (1.4-6.5); ABSOLUTE LYMPH COUNT 1.9 /CUMM (1.2-3.4); ABSOLUTE MONOCYTE COUNT 1.2 /CUMM (0.10-0.60); BASOPHIL % 0.1 % (0.0-2.0); EOSINOPHIL % 0 % (0-5); GRANULOCYTE % 73.1 % (42.2-75.2); HEMATOCRIT 33.6 % (37-47); MEAN CORPUSCULAR HGB CONC 32.8 G/DL (33.0-37.0); MEAN CORPUSCULAR VOLUME 91.7 FL (81.0-99.0); RBC DISTRIBUTION WIDTH 15.5 % (11.5-14.5); RED BLOOD CELL CT 3.66 /CUMM (4.20-5.40)
[2017-09-02 10:32] LABS: WHITE BLOOD CELL COUNT 11.6 /CUMM (4.8-10.8)
[2017-09-02 10:37] LABS: PT 31.7 SEC (9.4-12.5)
== END 2017-09-02 11:50 | disposition home health service (06) | DRG 190 ==
LOC: ERH 01:02 → ERHI 04:44 → 2NA 04:44 → ENRESERV 05:17 → 2NA 05:41 → ENPENDDIS 09-02 10:31 → ENTRNSPT 09-02 11:27 → EDTRNSPTSTS 09-02 11:36 → EDTRNSPT 09-02 11:36 → 2NA 09-02 11:50 → CMPTRNSPT 09-02 11:55
PROVIDERS: Internal Medicine; Pediatrics; Student in an Organized Health Care Education/Training Program
DX: J44.1 Chronic obstructive pulmonary disease with (acute) exacerbation (principal); J96.91 Respiratory failure, unspecified with hypoxia; J44.0 Chronic obstructive pulmonary disease with (acute) lower respiratory infection; J20.9 Acute bronchitis, unspecified; I48.0 Paroxysmal atrial fibrillation; Z79.01 Long term (current) use of anticoagulants; K59.00 Constipation, unspecified; F03.90 Unspecified dementia, unspecified severity, without behavioral disturbance, psychotic disturbance, mood disturbance, and anxiety; E78.5 Hyperlipidemia, unspecified; M19.90 Unspecified osteoarthritis, unspecified site; F32.9 Major depressive disorder, single episode, unspecified; I10 Essential (primary) hypertension; Z79.82 Long term (current) use of aspirin; Z79.51 Long term (current) use of inhaled steroids; H35.30 Unspecified macular degeneration; R79.89 Other specified abnormal findings of blood chemistry; K59.09 Other constipation; Z88.1 Allergy status to other antibiotic agents; Z88.0 Allergy status to penicillin; Z88.8 Allergy status to other drugs, medicaments and biological substances
CPT/HCPCS: 2NASP; 36415; 36592; 71045; 82436; 87040; 87086; 87804; 87804-59; 93005; 93010; 96374; J2920; J2930; J3490